=== PATIENT | male | born 1990 | race Caucasian/White ===

== ENCOUNTER 2016-11-30 09:00 | Emergency (ER) | payer OTHER ==
[~2016-11-30 09:00] MED LIST: LANTUS100 UNIT/1 SQ; NOVOLOG 10100 UNITS/ SQ
[2016-11-30 11:53] LABS: HEMOGLOBIN 15.8 gm/dl (14.0-17.5); RED BLOOD COUNT 5.65 M/UL (4.20-5.50); WHITE BLOOD COUNT 20.6 K/UL (4.5-11.0)
[2016-11-30 12:07] LABS: BUN/CREATININE RATIO 17 (0-10)
== END 2016-11-30 17:30 | disposition home or self-care (01) ==
LOC: ER1 09:00
PROVIDERS: Student in an Organized Health Care Education/Training Program
DX: E10.649 Type 1 diabetes mellitus with hypoglycemia without coma (principal); D72.829 Elevated white blood cell count, unspecified; E78.5 Hyperlipidemia, unspecified; F17.210 Nicotine dependence, cigarettes, uncomplicated; Z79.4 Long term (current) use of insulin; Z79.899 Other long term (current) drug therapy
CPT/HCPCS: 36415; 71010; 80053; 80307; 81001; 82550; 82553; 82962; 83874; 84484; 85025; 93005; 96360; 96361; 99285; G0480